=== PATIENT | female | born 1960 | race Caucasian/White ===

== ENCOUNTER → 2025-03-01 09:58 | Observation (INO) ==
[2025-02-27 17:09] LABS: Basophils%(Percent) Auto 0.3 (0.1-0.85); Eosinophils%(Percent) Auto 0.4 % (0.4-2.8); Granulocytes % - Auto 77.4 % (47.8-71.3); Granulocytes#(Absolute)- Auto 9.8 (2.3-6.0); Hematocrit 44.3 % (35.9-46.7); Mean Corpuscular Volume 88.6 fl (81.0-93.7); Monocytes %(Percent)- Auto 7.8 % (3.6-9.8); Platelet Count 379 K/uL (152-353); White Blood Count 12.6 K/uL (4.3-9.3)
[2025-02-27 17:19] LABS: Potassium 3.5 mmol/L (3.6-5.2)
[2025-02-27] MEDS: 0.9 % SODIUM CHLORIDE 1000 ML 1,000 ML IV SCH (17:55)
[2025-02-27] MEDS: PANTOPRAZOLE SODIUM 40 MG TABLET.DR PO SCH (17:56)
[2025-02-27] MEDS: ENOXAPARIN SODIUM 40 MG/0.4 ML SYRINGE SUBQ SCH ×2 (17:56→20:15)
[2025-02-27] MEDS: AZITHROMYCIN 500 MG 500 MG in 0.9 % SODIUM CHLORIDE 250 ML IV SCH (17:57)
[2025-02-27] MEDS: METHYLPREDNISOLONE SOD SUCC/PF 40 MG/ML VIAL INJ SCH (17:58)
[2025-02-27 19:31] LABS: PH BODY FLUID EXCP BLOOD 6.5 (5 - 9); Specific Gravity Urine 1.015 (1.001-1.035); Urine Appearance HAZY (CLEAR); Urine Blood NEGATIVE (NEG - TRACE); Urine Color DARK YELLOW (STRAW/YELL.); Urine Urobilinogen Normal (NORMAL)
[2025-02-27] MEDS: CEFTRIAXONE SODIUM 1 GM in 0.9 % SODIUM CHLORIDE MB+ 50 ML IV SCH (20:13)
[2025-02-27] MEDS: IPRATROPIUM/ALBUTEROL SULFATE 3 ML AMPUL.NEB INH SCH (20:39)
[2025-02-27] MEDS: BUDESONIDE 0.5 MG/2 ML AMPUL.NEB INH SCH (20:39)
[2025-02-28 07:01] LABS: Basophils%(Percent) Auto 0.1 (0.1-0.85); Granulocytes#(Absolute)- Auto 8.5 (2.3-6.0); Hematocrit 41.7 % (35.9-46.7); Mean Corpuscular Volume 88.7 fl (81.0-93.7); Monocytes #(Absolute)- Auto 0.3 (1.1-3.1); Monocytes %(Percent)- Auto 3.2 % (3.6-9.8); Platelet Count 323 K/uL (152-353); White Blood Count 9.9 K/uL (4.3-9.3)
--- NOTE | 2025-02-28 11:37 | History & Physical Report ---
H&P: HPI History of Present Illness Chief complaint: possible pneumonia, cough, dyspnea, tachycardia Narrative: Patient reports sore throat and cough, headache, for one week. She had completed antibiotics outpatient without any resolution of symptoms. States she began to "feel short of breath" yesterday and reported to her doctor who instructed her to come in for IV antibiotics. This morning she states "she feels much better and shortness of breath is better too". She denies recent fever, dizziness, blurred vision, no chest pain, n/v/d/c. Review of Systems Status of ROS 10 or more systems reviewed and unremark able except as noted in history and below [facility] Surgical History (Updated 02/28/25 @ 11:35 by Jewell Hearn NP) History of hysterectomy Social History Problems where you live: no known problems Highest level of school completed/degree received: high school Meds Home Medications and Allergies Home Medications Medication Instructions Recorded Confirmed Type No Known Home Medication 02/28/25 02/28/25 History Allergies Allergy/AdvReac Type Severity Reaction Status Date / Time No Known Drug Allergies Allergy Verified 02/27/25 18:33 Exam Constitutional: normal general appearance, no apparent distress, average body habitus, no limitations and alert Vital Signs - 24 hr 02/27/25 16:57 02/27/25 19:41 02/27/25 20:00 Temperature 98.5 F Pulse Rate [Bilate ral] 116 H 113 H Respiratory Rate 16 19 Blood Pressure [Le ft Arm] 129/74 Pulse Oximetry 93 L [facility] 02/27/25 20:40 02/27/25 23:18 02/28/25 00:24 Temperature 98.3 F Pulse Rate [Bilate ral] 88 Respiratory Rate 17 Blood Pressure [Le ft Arm] 137/76 Pulse Oximetry 94 L 94 L 96 [facility] 02/28/25 03:57 02/28/25 07:31 02/28/25 07:49 Temperature 98.1 F 98 F Pulse Rate [Bilate ral] 99 H 101 H Respiratory Rate 19 19 Blood Pressure [Le ft Arm] 141/80 145/89 Pulse Oximetry 95 98 96 [facility] Room Air 02/28/25 11:03 Temperature Pulse Rate [Bilate ral] Respiratory Rate Blood Pressure [Le ft Arm] Pulse Oximetry 98 Oxygen Delivery Me thod HENMT: normocephalic, head/scalp atraumatic, hearing grossly normal bilaterally and external nose normal Eyes: PERRL, EOMs intact bilaterally, conjunctivae normal and no scleral icterus Neck/C-Spine: visual inspection normal and trachea midline Lymph: no lymphadenopathy noted and no lymphedema noted Chest: inspection of chest normal Respiratory: breath sounds equal bilaterally, normal respiratory effort, clear to auscultation bilaterally, no wheezes (mild expiratory wheezes ), no rales, no retractions and no use of accessory muscles Cardiovascular: normal heart rate noted, regular rhythm noted, no gallop, no rub, no murmur and no JVD Gastrointestinal: abdomen normal to inspection, abdomen soft to palpation and normoactive bowel sounds Genitourinary: deferred Back/Pelvis: spine normal to inspection and no thoracic spine tenderness Extremities: normal to inspection, normal to palpation, no tenderness, full ROM, no joint enlargement and no deformity Neurology: no movement abnormality noted, speech normal and coordination normal Psychiatry: mental status grossly normal, oriented x3, thought process normal, cooperative and affect normal Skin: skin color normal, no rash, no lesions and no ecchymosis noted Assessment and Plan Assessment and Plan (1) Pneumonia: Code(s): J18.9 - Pneumonia, unspecified organism Plan Continue IV Rocephin and Azithromycin Incentive Spirometer D/C home in the am if continued improvement. Regular diet Results Labs Labs: CBC 02/27/25 02/28/25 Range/Units 16:50 06:20 WBC 12.6 H 9.9 H (4.3-9.3) K/uL RBC 5.0 4.7 (4.00-5.50) M/uL Hgb 15.0 14.1 (12.5-15.8) gm/dL Hct 44.3 41.7 (35.9-46.7) % Plt Count 379 H 323 (152-353) K/uL Gran % 77.4 H 86.0 H (47.8-71.3) % Lymph % (Auto) 14.1 L 10.7 L (20.0-43.0) % [place] % (Auto) 7.8 3.2 L (3.6-9.8) % Eos % (Auto) 0.4 0.0 L (0.4-2.8) % Baso % (Auto) 0.3 0.1 (0.1-0.85) Lymph # (Auto) 1.8 1.1 (1.1-3.1) [place] # (Auto) 1.0 L 0.3 L (1.1-3.1) Eos # (Auto) 0.0 0.0 (0.0-0.2) Baso # (Auto) 0.0 0.0 (0.0-0.1) Absolute Gran (auto) 9.8 H 8.5 H (2.3-6.0) CMP 02/27/25 02/28/25 16:50 06:20 Sodium 138 139 Potassium 3.5 L 4.0 Chloride 97.0 L 101.0 Carbon Dioxide 32 32 BUN 20 H 14 Creatinine 0.9 0.8 Glucose 114 H 134 H Calcium 9.9 9.3 Liver Function 02/27/25 02/28/25 Range/Units 16:50 06:20 Total Bilirubin 0.28 0.21 (0.0-1.0) mg/dL AST 28 22 (15-37) U/L ALT 26 L 30 (30-65) U/L Alkaline Phosphatase 85 74 (50-136) U/L Albumin 3.5 3.1 L (3.4-5.0) g/dL Urine 02/27/25 18:40 Urine Color Dark yellow Urine Appearance Hazy Ur Specific [place] 1.015 Urine Protein Trace Urine Glucose (UA) Normal
[2025-02-28] MEDS: BENZONATATE 100 MG CAPSULE PO PRN (20:03)
[2025-03-01 04:04] VITALS: RESP 19
[2025-03-01 08:09] VITALS: BP 140/73; PULSE 97; TEMP 98
--- NOTE | 2025-03-01 09:48 | Discharge Summary ---
DS: Providers Provider Date of admission: 02/27/25 16:29 Primary care physician: Jocelyne Mathews DO Attending physician on discharge: Jewell Hearn Discharging clinician: Jewell Hearn Anticipated date of discharge: 03/01/25 DS: Diagnosis Discharge Diagnosis (1) Pneumonia: Plan Discharge home. Continue to use incentive spirometer as directed. Increase PO fluid intake. Follow up with PCP in 1-2 weeks. DS: Summary Hospital Course Hospital Course: IV antibiotics x 2 days. IVF and nebs. No sob, fatigue. Continues to cough up sputum on occasion. Patient feeling well and ready for discharge. Patient complete outpatient antibiotics prior to admission. Status at Discharge Functional status at discharge: independent ambulation Overall status at discharge: patient is back to baseline Time Spent with Patient Time attestation: Total time spent providing and/or coordinating discharge services: 35 minutes Time spent: greater than 30 minutes Exam Constitutional: normal general appearance and no apparent distress Vital Signs - 24 hr 02/28/25 11:03 02/28/25 12:00 02/28/25 12:00 Temperature 97.7 F 97.7 F Pulse Rate [Bilate ral] 104 H 101 H Respiratory Rate 19 19 Blood Pressure [Le ft Arm] 152/82 152/82 Pulse Oximetry 98 95 95 Oxygen Delivery Me thod Room Air Room Air Fraction of Inspir ed Oxygen 02/28/25 15:17 02/28/25 16:00 02/28/25 19:39 Temperature 98.3 F Pulse Rate [Bilate ral] 108 H Respiratory Rate 19 Blood Pressure [Le ft Arm] 144/76 Pulse Oximetry 98 94 L 97 Oxygen Delivery Me thod Room Air Fraction of Inspir ed Oxygen 02/28/25 19:40 02/28/25 19:56 02/28/25 23:44 Temperature 98.6 F 98.4 F Pulse Rate [Bilate ral] 101 H 102 H Respiratory Rate 18 18 Blood Pressure [Le ft Arm] 154/84 143/83 Pulse Oximetry 97 96 95 Oxygen Delivery Me thod Room Air Room Air Room Air Fraction of Inspir ed Oxygen 21 03/01/25 04:00 03/01/25 04:10 03/01/25 08:00 Temperature 98.1 F 98 F Pulse Rate [Bilate ral] 98 H 97 H Respiratory Rate 19 19 Blood Pressure [Le ft Arm] 150/85 140/73 Pulse Oximetry 96 99 96 Oxygen Delivery Me thod Room Air Room Air Fraction of Inspir ed Oxygen 03/01/25 08:32 Temperature Pulse Rate [Bilate ral] Respiratory Rate Blood Pressure [Le ft Arm] Pulse Oximetry 98 Oxygen Delivery Me thod Fraction of Inspir ed Oxygen HENMT: normocephalic and head/scalp atraumatic Neck/C-Spine: visual inspection normal and trachea midline Lymph: no lymphadenopathy noted and no lymphedema noted Chest: inspection of chest normal Respiratory: breath sounds equal bilaterally, normal respiratory effort, clear to auscultation bilaterally, no wheezes, no rales, no retractions and no use of accessory muscles Cardiovascular: normal heart rate noted, regular rhythm noted, no gallop, no rub, no murmur and no JVD Gastrointestinal: abdomen normal to inspection, abdomen soft to palpation and normoactive bowel sounds Genitourinary: deferred Back/Pelvis: spine normal to inspection Extremities: normal to inspection, normal to palpation, no tenderness and full ROM Neurology: face burler II-XII intact, no movement abnormality noted, no focal motor deficit noted, speech normal and coordination normal Psychiatry: mental status grossly normal, oriented x3, thought process normal, cooperative and affect normal Skin: skin color normal, no rash and no lesions DS: Data Data Completed and Pending Labs on day of discharge: Preliminary micro results at discharge 02/27/25 16:50 Blood Culture - Preliminary Blood - Venous Draw (Peripheral) 02/27/25 17:00 Blood Culture - Preliminary Blood - Venous Draw (Peripheral) Discharge Plan Discharge Disposition: Home, Self-Care Condition: Improved Discharge Medications: No Action No Known Home Medication Discharge Orders: Discharge Order (Routine); Ordered 03/01/25 Ordered By: Jewell Hearn Activity: increase activity as tolerated and resume usual activities as tolerated Activity Detail: Use incentive spirometer Diet: advance to your usual diet Forms: Portal/Health Info Access Inst Follow-Ups: Jocelyne Mathews DO [Primary Care Provider] - (follow up within 1-2 weeks.)
[~2025-03-01 09:58] MED LIST: ACETAMINOPHEN 500 MG TABLET PO PRN; MAGNESIUM, ALUMINUM HYDROXIDE 30 ML ORAL.SUSP PO PRN; ONDANSETRON HCL/PF 4 MG/2 ML VIAL INJ PRN
== END | disposition home or self-care (01) ==
LOC: MS
PROVIDERS: ADMIT Family Medicine; ATTEND Family Medicine
DX: J98.11 Atelectasis; J18.9 Pneumonia, unspecified organism